=== PATIENT | male | born 1965 | race Caucasian/White ===

== ENCOUNTER 2017-07-27 09:07 | Day surgery (SDC) | payer BC ==
[~2017-07-27 09:07] MED LIST: ceFAZolin 2 GM/50 ML 2 GM/50 ML BAG IV ONE
[2017-07-27] MEDS ORDERED: LACTATED RINGERS 1,000 ML IV ONE ×2 (09:38→13:38)
[2017-07-27] MEDS ORDERED: BUPIVACAINE 0.5% PF 10 ML VIAL ONE (10:23)
[2017-07-27] MEDS ORDERED: BUPIVACAINE 0.5% PF 10 ML VIAL IM ONE ×2 (10:27→13:10)
--- NOTE | 2017-07-27 10:52 | HISTORY & PHYSICAL EXAMINATION ---
HPI - History of Present Illness HPI Comment/Other: Patient is here for left inguinal hernia and umbilical hernia repair. No evidence of incarceration. Current Meds: OXYCODONE-ACETAMINOPHEN 5-325 MG ORAL TABLET (OXYCODONE-ACETAMINOPHEN) OXYCODONE HCL 20 MG ORAL TABLET (OXYCODONE HCL) LISINOPRIL 20 MG ORAL TABLET (LISINOPRIL) Allergies: PENICILLIN V POTASSIUM (Critical) Past Medical History: Reviewed history from 11/28/2014 and no changes required: High blood pressure Ulcer Past Surgical History: Reviewed history from 11/28/2014 and no changes required: Tonsillectomy Deviated septom 1994 Left Knee surgery 2014, 2015 Family History Summary: Reviewed history and no changes required: 04/29/2017 Father (biol.) - Has a Hx of Hypertension - Entered On: 11/28/2014 Father (biol.) - Has a Hx of Stroke/CVA - Entered On: 11/28/2014 Father (biol.) - Has Family History of Hypertension - Entered On: 04/29/2017 Father (biol.) - Has Family History of Stroke/CVA - Entered On: 04/29/2017 Social History: Reviewed history from 11/28/2014 and no changes required: Alcohol Use - yes Drug Use - no Smoking History: Patient has never smoked. Risk Factors: Smoked Tobacco Use: Never smoker Drug use: no Alcohol use: yes Drinks per day: 2 Exercise: no Review of Systems General Denies weight loss. GI Denies nausea and vomiting. CV Denies palpitations. Resp Denies shortness of breath. Vascular Complains of pain in legs with walking. Denies leg swelling. Previous fractured tibial plateau with persistent knee pain Physical Exam General: well developed, well nourished, in no acute distress Lungs: clear bilaterally to A & P Heart: regular rate and rhythm, S1, S2 without murmurs, rubs, gallops, or clicks Abdomen: Very small umbilical hernia present Genitalia: Moderate sized left inguinal hernia present in the standing position which is easily reducible. Exam is consistent with bowel within the hernia sac.No right inguinal hernia present Pulses: pulses normal in all 4 extremities Extremities: no clubbing, cyanosis, edema, or deformity noted with normal full range of motion of all joints Cervical Nodes: no significant adenopathy Psych: alert and cooperative; normal mood and affect; normal attention span and concentration Impression & Recommendations: Problem # 1: Left inguinal hernia, umbilical hernia Patient feels that inguinal hernia has slightly increased in size. Will proceed with laparoscopic left inguinal hernia repair and umbilical hernia repair PMH/PSH - Past Medical History Cardiovascular: positive: Hypertension Respiratory: positive: None Endocrine/Autoimmune: positive: None GI: positive: Ulcers : positive: None HEENT: positive: None Psych: positive: None Musculoskeletal: positive: None Derm: positive: None MRSA Hx?: No - Past Surgical History Ortho: positive: Knee replacement, Arthroscopic surgery HEENT: positive: Tonsil/Adenoidectomy Social & Family Hx - Social History Does the pt smoke?: No Smoking Status: Never smoker Does the pt drink ETOH?: Yes ETOH Use: Beer Meds/Allgy - Home Medications Home Medications: Ambulatory Orders Medication Instructions Recorded Confirmed Lisinopril 20 mg PO DAILY 11/01/13 07/27/17 Loratadine [Claritin] 10 mg PO DAILY PRN 11/01/13 07/27/17 Ascorbate Calcium [Vitamin C] 500 mg PO DAILY 11/29/14 07/27/17 Multivitamin [One-A-Day Essential] 1 each PO DAILY 11/29/14 07/27/17 Naproxen Sodium [Aleve] 1 07/27/17 - Allergies Allergies/Adverse Reactions: Allergies Allergy/AdvReac Type Severity Reaction Status Date / Time Penicillins Allergy Unknown Unknown Verified 07/23/17 09:26 Exam - Vital Signs Vital Signs: Vital Signs x48h Temp Pulse Resp BP Pulse Ox 07/27/17 09:23 36.4 C L 81 16 138/88 H 98
[2017-07-27] MEDS ORDERED: LIDOCAINE-MPF 2% 5 ML VIAL IM ONE (11:56)
[2017-07-27] MEDS ORDERED: PROPOFOL 200 MG/20 ML VIAL IVP ONE (11:56)
[2017-07-27] MEDS ORDERED: GLYCOPYRROLATE 1 MG/5 ML VIAL IVP ONE (11:56)
[2017-07-27] MEDS ORDERED: KETOROLAC 30 MG/ML VIAL IVP ONE (11:56)
[2017-07-27] MEDS ORDERED: fentaNYL 250 MCG/5 ML VIAL IVP ONE (11:56)
[2017-07-27] MEDS ORDERED: NEOSTIGMINE 1 MG/1 ML 10 ML MDV IVP ONE (11:56)
[2017-07-27] MEDS ORDERED: ROCURONIUM 50 MG/5 ML VIAL IVP ONE (11:56)
[2017-07-27] MEDS ORDERED: ONDANSETRON 4 MG/2 ML VIAL IVP ONE (11:56)
--- NOTE | 2017-07-27 13:49 | OPERATIVE REPORT ---
Operative Report - General Procedure Date: 07/27/17 Pre-Op Diagnosis: left inguinal hernia, umbilical hernia Procedure Performed: laparoscopic left inguinal hernia repair, umbilical hernia repair - Procedure Note Primary Surgeon: Dann Anesthesia Technique: General ET tube Estimated Blood Loss (mL): 10 - Other Other Information/Narrative: SURGEON: Dr. Quigley. PREOPERATIVE DIAGNOSIS: Symptomatic left inguinal hernia, umbilical hernia POSTOPERATIVE DIAGNOSIS: Bilateral inguinal hernias. INDICATIONS FOR PROCEDURE: This is a 52 year old male with a moderately sized reducible left inguinal hernia and a small umbilical hernia. FINDINGS: After obtaining informed consent from the patient, he was brought into the operating room and positioned on the operating table in the supine position, taking note of pressure points. He was intubated by Anesthesia. Perioperative antibiotics were administered. SCD boots were applied. He was prepped and draped in the usual sterile fashion. A timeout was taken according to protocol. An infraumbilical 1 cm incision was created and deepened down to the anterior rectus sheath. This was exposed using blunt dissection. The anterior sheath was then opened with a 15 blade and extended with Metzenbaums, exposing the underlying rectus muscle. The rectus muscle was swept laterally with the retractor and the surgeon's finger inserted into the retrorectus space to perform blunt dissection. The dissecting balloon was then inserted and inflated under direct visualization. The balloon was then removed and was exchanged for the operative balloon. Two 5 mm ports were placed in the infraumbilical midline. The patient was positioned in Trendelenburg with the left side elevated. The fatty tissue overlying the pubic bone was dissected to expose the pubic bone. I then turned my attention to the patient's left abdominal wall and pushed the peritoneum down, exposing the left lateral abdominal musculature. I worked my way medially towards the cord structures continuing to push the peritoneum down. A moderate hernia sac, was noted in this area. It was noted to be quite stuck to the cord structures and required careful dissection to fully reduce the hernia sac. I did have to divide the hernia sac near the distal portion as I could not dissect it off the cord structures completely. A defect was created in the peritoneum during this process. The vas deferens and cord structures were protected during this dissection. The epigastric vessels were also visualized and protected. Upon complete dissection of the hernia off the cord structures the direct space was then visualized and there was some fat within the space, but no hernia was noted. A left sided 15x10 cm progrip mesh was opened and placed in saline. This was inserted through the umbilical port and positioned with the medial aspect of the mesh was noted to be slightly crossing the midline and the mesh was seated against the abdominal wall as to cover the indirect, direct and femoral spaces. The hernia sac was positioned external to the mesh. The cavity was then inspected for ensure hemostasis had been achieved and it had. The umbilical fascial incision was then closed with a running 0 Vicryl suture. The umbilical stalk was then grasped and the umbilical stalk was circumferrentially dissected out using a tonsil clamp. The umbilical skin divided from the hernia sac with a 15 blade. A 5 mm umbilical defect was noted and was closed with a figure of eight 0 vicryl suture. The incision was irrigated and no bleeding was noted. 30 mL of local anesthetic was infiltrated. The skin incisions were closed with 4-0 Monocryl. Dermabond was then applied. The patient was subsequently extubated and taken to the recovery room in stable condition. COMPLICATIONS: None.
[2017-07-27] MEDS ORDERED: oxyCOD/ACETAMIN 5 MG/325 MG TABLET PO ONE (14:43)
[2017-07-27 17:49] VITALS: BP 152/94
== END 2017-07-27 09:08 | disposition home or self-care (01) ==
LOC: SDS 09:07
PROVIDERS: ATTEND Surgery
PROC: 0YU54JZ Supplement Right Inguinal Region with Synthetic Substitute, Percutaneous Endoscopic Approach (ICD-10-PCS; principal; 2017-07-27 10:15)
DX: K40.90 Unilateral inguinal hernia, without obstruction or gangrene, not specified as recurrent (principal); K42.9 Umbilical hernia without obstruction or gangrene; I10 Essential (primary) hypertension
CPT/HCPCS: 49650; A9270; J0690; J3010; J7120

== ENCOUNTER 2021-05-08 17:02 | Outpatient (CLI) | payer OTHER ==
--- NOTE | 2021-05-09 15:34 | Ultrasound Report ---
PROCEDURE: Bladder INDICATIONS: BENIGN PROSTATIC HYPERPLASIA WITH LOWER URINARY TR TECHNIQUE: Real-time scanning was performed of the kidneys and bladder, with image documentation. COMPARISON:None FINDINGS: Bladder: Pre-void bladder volume is 626 mL. Post-void residual is 303 mL. Pre-void images demonstr ate no intraluminal masses or stones. On pre-void images, bilateral ureteral jets are noted with col or Doppler interrogation. (Of note, ureteral jets may not be detectable in up to 25% of cases due to insufficient differences in specific gravity between ureteral and bladder urine). Prostate gland me asures 4.6 x 4.0 x 5.6 cm. Miscellaneous: No free pelvic fluid. IMPRESSION: Significant post void residual as above. This may be secondary to prostate hypertrophy. Reviewed by: Josselyn Cervantes MD on 05/09/2021 3:29 PM PST Approved by: Josselyn Cervantes MD on 05/09/2021 3:29 PM PST Station ID: [id number]
== END 2021-05-08 17:03 | disposition home or self-care (01) ==
LOC: DI 17:02
PROVIDERS: ATTEND Internal Medicine
DX: N40.1 Benign prostatic hyperplasia with lower urinary tract symptoms (principal)

== ENCOUNTER 2023-09-08 16:42 | Outpatient (CLI) | payer OTHER ==
--- NOTE | 2023-09-09 00:43 | XRAY Report ---
PROCEDURE: Knee 3V LT INDICATIONS: EFFUSION, LEFT KNEE TECHNIQUE: 3 views of the knee was obtained. COMPARISON: None FINDINGS: Bones: Total knee prosthesis in good position. No evidence of hardware failure or loosening. No asso ciated fracture. No soft tissue form. Soft tissues: No knee joint effusion. No suspicious soft tissue calcifications or masses. IMPRESSION: Total knee arthroplasty in good position Reviewed by: Ramez Allen MD on 09/08/2023 11:42 PM [facility] Approved by: Ramez Allen MD on 09/08/2023 11:42 PM [facility]DT Station ID: [id number]
== END 2023-09-08 16:43 | disposition home or self-care (01) ==
LOC: DI 16:42
PROVIDERS: ATTEND Student in an Organized Health Care Education/Training Program
DX: M25.462 Effusion, left knee (principal); Z96.652 Presence of left artificial knee joint